=== PATIENT | female | born 1940 | race Caucasian/White ===

== ENCOUNTER 2020-10-07 11:59 | Inpatient (IN) | payer MEDICARE, OTHER ==
[~2020-10-07] VITALS: Ht 167.6 cm; Wt 100.4 kg
[~2020-10-07 11:59] MED LIST: ALBUTEROL2.5 MG/3 M INH; ALDACTONE25 MG PO; ASPIR 8181 MG PO; BROVANA15 MCG/2 M INH; BUMETANIDE1 MG PO; BUSPIRONE HCL15 MG PO; BUSPIRONE HCL30 MG PO; CARDIZEM 90MG T90 MG PO; CATAPRES 0.1MG0.1 MG PO; CATAPRES0.1 MG PO; CEFDINIR300 MG PO; CEFUROXIME500 MG PO; COUMADIN 5MG TAB5 MG PO; COUMADIN2 MG PO; COUMADIN3 MG PO; COUMADIN4 MG PO; DICLOFENAC SODI75 MG PO; DULERA 200 MCG8.8 GM INH; ELIQUIS5 MG PO; FERROUS SULFAT325 M2 PO; FLUZONE QU60 MCG/013 IM; IPRAT-ALBUT 0.5-3 ML INH; K-DUR TAB 20 M20 MEQ PO; KLOR-CON M2020 MEQ PO; LASIX 40 MG TAB40 MG PO; LEVAQUIN TAB 5500 MG PO; LEVAQUIN500 MG PO; LEXAPRO10 MG PO; LISINOPRIL20 MG PO; LOTREL 5-20 MG1 EACH PO; LOVENOX SY80 MG/0.8 SQ; MEDROL4 MG PO; METOPROLOL SUCC50 MG PO; NORCO 7.5-3251 EACH PO; PEG3350510 GM PO; PERCOCET 10-321 EACH PO; PERCOCET 5-3251 EACH PO; POTASSIUM CHLO20 ME2 PO; PREDNISONE10 MG PO; PREDNISONE20 MG PO; PROVENTIL HFA6.7 GM INH; PROZAC40 MG PO; PULMICORT1 MG/2 ML INH; QVAR INH; SYMBICORT 160-1 INHA INH; TOPROL XL25 MG PO; TYLENOL 325MG325 MG PO; VENTOLIN HFA 66.7 GM INH; YUPELRI175 MCG/3 NEB; ZITHROMAX500 MG PO; ZYPREXA2.5 MG PO
[2020-10-07 16:37] LABS: HEMOGLOBIN 11.6 gm/dl (12.3-15.3); RED BLOOD COUNT 4.3 M/UL (4.00-5.10); WHITE BLOOD COUNT 14.7 K/UL (4.5-11.0)
[2020-10-08 06:38] LABS: HEMOGLOBIN 10.3 gm/dl (12.3-15.3); RED BLOOD COUNT 3.87 M/UL (4.00-5.10)
[2020-10-08 06:43] LABS: WHITE BLOOD COUNT 9.2 K/UL (4.5-11.0)
[2020-10-09 02:39] LABS: HEMOGLOBIN 13.6 gm/dl (12.3-15.3); RED BLOOD COUNT 5.18 M/UL (4.00-5.10); WHITE BLOOD COUNT 6.3 K/UL (4.5-11.0)
[2020-10-09] MEDS ORDERED: CHRONULAC20 GM/30 M PO (10:19)
[2020-10-09] MEDS ORDERED: DIFLUCAN 100 M100 MG PO (10:19)
[2020-10-09] MEDS ORDERED: ZYVOX600 MG PO (10:19)
[2020-10-09] MEDS ORDERED: SENNA-TIME S T1 EACH PO (10:19)
== END 2020-10-09 14:39 | disposition home health service (06) | DRG 690 ==
LOC: ER1 11:59 → CDU 18:54 → MED SURG 4 18:54
PROVIDERS: Internal Medicine Infectious Disease; Physician Assistant Medical; ADMIT Internal Medicine
DX: N30.90 Cystitis, unspecified without hematuria (principal); I48.20 Chronic atrial fibrillation, unspecified; I50.32 Chronic diastolic (congestive) heart failure; E87.2 Acidosis; I11.0 Hypertensive heart disease with heart failure; K59.81 Ogilvie syndrome; K59.09 Other constipation; Z96.642 Presence of left artificial hip joint; Z96.652 Presence of left artificial knee joint; L89.890 Pressure ulcer of other site, unstageable; E86.0 Dehydration; J44.9 Chronic obstructive pulmonary disease, unspecified; Z74.01 Bed confinement status; G47.30 Sleep apnea, unspecified; Z90.710 Acquired absence of both cervix and uterus; Z79.01 Long term (current) use of anticoagulants; Z90.49 Acquired absence of other specified parts of digestive tract; Z88.0 Allergy status to penicillin; Z88.2 Allergy status to sulfonamides; Z91.041 Radiographic dye allergy status; Z79.899 Other long term (current) drug therapy; Z79.82 Long term (current) use of aspirin
CPT/HCPCS: 36415; 70450; 71045; 74018; 80053; 81001; 82550; 82553; 83605; 83735; 83874; 83880; 84484; 85025; 85610; 85652; 86140; 87040; 87086; 92610; 93005; 94640; 94664; 94760; 96365; 96367; 97162; 97167; 99285; J1956; J2185; J7030; U0002

== ENCOUNTER 2020-10-10 17:55 | Emergency (ER) | payer MEDICARE, OTHER ==
[~2020-10-10 17:55] MED LIST changes: +CHRONULAC20 GM/30 M PO; +DIFLUCAN 100 M100 MG PO; +SENNA-TIME S T1 EACH PO; +ZYVOX600 MG PO
[2020-10-10 20:54] LABS: HEMOGLOBIN 11.1 gm/dl (12.3-15.3); RED BLOOD COUNT 4.03 M/UL (4.00-5.10); WHITE BLOOD COUNT 9.2 K/UL (4.5-11.0)
[2020-10-10 21:31] LABS: BUN/CREATININE RATIO 16 (0-10)
== END 2020-10-10 23:22 | disposition home or self-care (01) ==
LOC: ER1 17:55
PROVIDERS: Physician Assistant
DX: I11.0 Hypertensive heart disease with heart failure (principal); I50.9 Heart failure, unspecified; L89.322 Pressure ulcer of left buttock, stage 2; L89.312 Pressure ulcer of right buttock, stage 2; I48.91 Unspecified atrial fibrillation; J45.909 Unspecified asthma, uncomplicated; Z87.891 Personal history of nicotine dependence; Z88.0 Allergy status to penicillin; Z88.2 Allergy status to sulfonamides; Z91.041 Radiographic dye allergy status
CPT/HCPCS: 71045; 80053; 82550; 82553; 83874; 83880; 84484; 85025; 93005; 99285

== ENCOUNTER 2020-11-02 15:09 | Inpatient (IN) | payer MEDICARE, OTHER ==
[~2020-11-02] VITALS: Ht 172.7 cm; Wt 90.3 kg
[2020-11-02 16:32] LABS: RED BLOOD COUNT 3.93 M/UL (4.00-5.10); WHITE BLOOD COUNT 6.3 K/UL (4.5-11.0)
[2020-11-02 16:58] LABS: BUN/CREATININE RATIO 18 (0-10)
[2020-11-02] MEDS ORDERED: CALCIUM 600 PO (22:19)
[2020-11-02] MEDS ORDERED: POTASSIUM CHLO20 ME1 PO (22:25)
[2020-11-02] MEDS ORDERED: MAG-OX 400 TAB400 MG PO (22:26)
[2020-11-02] MEDS ORDERED: GENTLELAX510 GM PO (22:31)
[2020-11-03 04:56] LABS: RED BLOOD COUNT 3.94 M/UL (4.00-5.10)
[2020-11-03 05:14] LABS: WHITE BLOOD COUNT 8.2 K/UL (4.5-11.0)
[2020-11-03 05:35] LABS: BUN/CREATININE RATIO 16 (0-10)
[2020-11-04 07:12] LABS: HEMOGLOBIN 9.6 gm/dl (12.3-15.3); WHITE BLOOD COUNT 8.3 K/UL (4.5-11.0)
[2020-11-04 07:25] LABS: BUN/CREATININE RATIO 16 (0-10)
[2020-11-04 07:32] LABS: RED BLOOD COUNT 3.41 M/UL (4.00-5.10)
[2020-11-07 06:21] LABS: RED BLOOD COUNT 3.16 M/UL (4.00-5.10); WHITE BLOOD COUNT 8.9 K/UL (4.5-11.0)
[2020-11-07 06:48] LABS: BUN/CREATININE RATIO 10 (0-10)
[2020-11-08 05:18] LABS: HEMOGLOBIN 9.9 gm/dl (12.3-15.3); RED BLOOD COUNT 3.41 M/UL (4.00-5.10); WHITE BLOOD COUNT 10.4 K/UL (4.5-11.0)
[2020-11-09 05:56] LABS: HEMOGLOBIN 9.3 gm/dl (12.3-15.3); RED BLOOD COUNT 3.24 M/UL (4.00-5.10); WHITE BLOOD COUNT 11.1 K/UL (4.5-11.0)
--- NOTE | 2020-11-09 11:30 | NUR ---
PATIENT WAS SCHEDUELED FOR SURGERY TODAY AND THE DIET WAS NOT CHANGED BY UROLOGY. PATIENT ATE BREAKFAST. UROLOGY AND ANESTHESIA WAS NOTIFIED AND THEY STATED THAT THE PROCEDURE WOULD HAVE TO BE CONACELLED AND RESCHEDULED NEXT WITH A FOLLOW UP IN THE OFFICE. WAS NOTIFIED. NO NEW ORDERS AT THIS TIME.
[2020-11-10 07:09] LABS: HEMOGLOBIN 9.2 gm/dl (12.3-15.3); RED BLOOD COUNT 3.36 M/UL (4.00-5.10)
[2020-11-10 07:16] LABS: WHITE BLOOD COUNT 8.2 K/UL (4.5-11.0)
[2020-11-10 07:27] LABS: BUN/CREATININE RATIO 21 (0-10)
[2020-11-10] MEDS ORDERED: PROTONIX 40 MG40 M1 PO (09:36)
[2020-11-10] MEDS ORDERED: ELIQUIS5 MG PO (09:36)
[2020-11-10] MEDS ORDERED: OMNICEF 300 MG300 MG PO (09:36)
--- NOTE | 2020-11-10 12:56 | NUR ---
PCS FORM FAXED TO [facility] AT THIS TIME. SPOKE WITH LOIS GUEVARA ABOUT TRANSPORTATION OF PATIENT HOME.
== END 2020-11-10 16:25 | disposition home health service (06) | DRG 383 ==
LOC: ER1 15:09 → CDU 18:14 → MED SURG 4 18:14
PROVIDERS: Emergency Medicine; ADMIT Internal Medicine
DX: K26.3 Acute duodenal ulcer without hemorrhage or perforation (principal); I50.33 Acute on chronic diastolic (congestive) heart failure; N30.00 Acute cystitis without hematuria; D68.61 Antiphospholipid syndrome; I95.2 Hypotension due to drugs; Z20.822 Contact with and (suspected) exposure to COVID-19; L89.601 Pressure ulcer of unspecified heel, stage 1; F31.9 Bipolar disorder, unspecified; I27.20 Pulmonary hypertension, unspecified; T19.8XXA Foreign body in other parts of genitourinary tract, initial encounter; E87.6 Hypokalemia; K59.00 Constipation, unspecified; I48.0 Paroxysmal atrial fibrillation; I11.0 Hypertensive heart disease with heart failure; J45.909 Unspecified asthma, uncomplicated; R07.89 Other chest pain; Z96.642 Presence of left artificial hip joint; N20.0 Calculus of kidney; Z96.652 Presence of left artificial knee joint; Z90.49 Acquired absence of other specified parts of digestive tract; Z86.718 Personal history of other venous thrombosis and embolism; Z87.891 Personal history of nicotine dependence; Z86.711 Personal history of pulmonary embolism; Z90.710 Acquired absence of both cervix and uterus; Z82.49 Family history of ischemic heart disease and other diseases of the circulatory system; Z87.81 Personal history of (healed) traumatic fracture; Z88.0 Allergy status to penicillin; Z88.2 Allergy status to sulfonamides; Z91.041 Radiographic dye allergy status; Z79.01 Long term (current) use of anticoagulants; Z79.82 Long term (current) use of aspirin; Z79.899 Other long term (current) drug therapy; Z83.3 Family history of diabetes mellitus; Z84.1 Family history of disorders of kidney and ureter
CPT/HCPCS: 36415; 71045; 80048; 80053; 80061; 81001; 82150; 82550; 82553; 83036; 83690; 83735; 83874; 84132; 84484; 85025; 85027; 85610; 85730; 87077; 87086; 87186; 93005; 94640; 94664; 94760; 97163; 97166; 99285; A6212; C9113; J0713; J1940; J1956; J2270; J2405; J3480; J7030; J7040; U0002

== ENCOUNTER 2020-11-14 03:07 | Inpatient (IN) | payer MEDICARE, OTHER ==
[~2020-11-14] VITALS: Ht 170.2 cm; Wt 90.3 kg
[~2020-11-14 03:07] MED LIST changes: +CALCIUM 600 PO; +GENTLELAX510 GM PO; +MAG-OX 400 TAB400 MG PO; +OMNICEF 300 MG300 MG PO; +POTASSIUM CHLO20 ME1 PO; +PROTONIX 40 MG40 M1 PO
[2020-11-14 03:51] LABS: HEMOGLOBIN 10.3 gm/dl (12.3-15.3); RED BLOOD COUNT 3.54 M/UL (4.00-5.10); WHITE BLOOD COUNT 8.2 K/UL (4.5-11.0)
[2020-11-14 04:14] LABS: BUN/CREATININE RATIO 16 (0-10)
[2020-11-14] MEDS ORDERED: CEFDINIR300 MG PO (10:39)
[2020-11-14] MEDS ORDERED: CALTRATE 600MG600 MG PO (10:45)
[2020-11-15 14:44] LABS: HEMOGLOBIN 9.6 gm/dl (12.3-15.3); RED BLOOD COUNT 3.29 M/UL (4.00-5.10); WHITE BLOOD COUNT 8.5 K/UL (4.5-11.0)
[2020-11-15 15:05] LABS: BUN/CREATININE RATIO 23 (0-10)
[2020-11-16 02:29] LABS: RED BLOOD COUNT 3.05 M/UL (4.00-5.10); WHITE BLOOD COUNT 6.4 K/UL (4.5-11.0)
[2020-11-17 02:59] LABS: HEMOGLOBIN 9.3 gm/dl (12.3-15.3); RED BLOOD COUNT 3.17 M/UL (4.00-5.10); WHITE BLOOD COUNT 7.9 K/UL (4.5-11.0)
[2020-11-17] MEDS ORDERED: ZYVOX600 MG PO (09:34)
[2020-11-17] MEDS ORDERED: PROZAC40 MG PO (09:34)
== END 2020-11-17 16:05 | disposition home health service (06) | DRG 982 ==
LOC: ER1 03:07 → PROG CARE 06:41 → CDU 06:41 → PROG CARE 11-15 14:00
PROVIDERS: Family Medicine; Urology; ADMIT Internal Medicine
PROC: 0TP98DZ Removal of Intraluminal Device from Ureter, Via Natural or Artificial Opening Endoscopic (ICD-10-PCS; 2020-11-16)
PROC: 0TC08ZZ Extirpation of Matter from Right Kidney, Via Natural or Artificial Opening Endoscopic (ICD-10-PCS; 2020-11-16)
PROC: 0T9680Z Drainage of Right Ureter with Drainage Device, Via Natural or Artificial Opening Endoscopic (ICD-10-PCS; 2020-11-16)
PROC: 0TC68ZZ Extirpation of Matter from Right Ureter, Via Natural or Artificial Opening Endoscopic (ICD-10-PCS; principal; 2020-11-16 13:15)
PROC: 0T768DZ Dilation of Right Ureter with Intraluminal Device, Via Natural or Artificial Opening Endoscopic (ICD-10-PCS; 2020-11-16 13:15)
DX: I48.91 Unspecified atrial fibrillation (principal); L97.409 Non-pressure chronic ulcer of unspecified heel and midfoot with unspecified severity; D68.61 Antiphospholipid syndrome; N30.00 Acute cystitis without hematuria; L97.429 Non-pressure chronic ulcer of left heel and midfoot with unspecified severity; Z16.21 Resistance to vancomycin; I50.32 Chronic diastolic (congestive) heart failure; Z20.822 Contact with and (suspected) exposure to COVID-19; Z79.01 Long term (current) use of anticoagulants; I27.20 Pulmonary hypertension, unspecified; Z87.442 Personal history of urinary calculi; K59.81 Ogilvie syndrome; I11.0 Hypertensive heart disease with heart failure; K27.9 Peptic ulcer, site unspecified, unspecified as acute or chronic, without hemorrhage or perforation; E66.9 Obesity, unspecified; Z96.652 Presence of left artificial knee joint; Z90.710 Acquired absence of both cervix and uterus; Z90.49 Acquired absence of other specified parts of digestive tract; Z87.891 Personal history of nicotine dependence; Z82.49 Family history of ischemic heart disease and other diseases of the circulatory system; I36.1 Nonrheumatic tricuspid (valve) insufficiency; Z88.0 Allergy status to penicillin; Z88.2 Allergy status to sulfonamides; Z91.041 Radiographic dye allergy status; Z79.82 Long term (current) use of aspirin; R53.81 Other malaise; Z86.711 Personal history of pulmonary embolism; Z86.718 Personal history of other venous thrombosis and embolism; E87.6 Hypokalemia; N21.0 Calculus in bladder; Z68.32 Body mass index [BMI] 32.0-32.9, adult; E11.621 Type 2 diabetes mellitus with foot ulcer; B95.2 Enterococcus as the cause of diseases classified elsewhere; I95.9 Hypotension, unspecified
CPT/HCPCS: 36415; 36600; 71045; 74018; 80048; 80053; 81001; 82550; 82553; 82803; 82962; 83880; 84484; 85025; 85027; 87077; 87086; 87186; 93005; 96374; 96375; 99285; C1769; C1894; C2617; J0713; J1100; J2001; J2020; J2405; J2704; J3010; J7070; J7120; U0002